=== PATIENT | female | born 1990 | race Hispanic/Latino ===

== ENCOUNTER 2020-09-30 05:43 | Inpatient (IN) | payer BC ==
[~2020-09-30 05:43] MED LIST: Acetaminophen 500 MG TAB PO PRN; Butorphanol Tartrate 1 MG/ML VIAL SLOW IVP PRN; Carboprost 250 MCG/ML AMP IM PRN; Diphenoxylate HCl/Atropine Tablet PO PRN; Docusate 100 MG CAP PO PRN; HYDROcodone/Acetaminophen 5/325 mg Tablet PO PRN; Ibuprofen 800 MG TAB PO PRN; Lactated Ringer's 1,000 ML IV SCH; Lidocaine 1% (PF) 30 ML VIAL SC PRN; Methylergonovine 0.2 MG/ML VIAL IM PRN; Misoprostol 200 MCG TAB PR PRN; NS w/ Oxytocin 30 units 500 ML IV SCH; NS w/ Oxytocin 30 units 500 ML IVPB SCH; Ondansetron PF 4 MG/2 ML Vial IVP PRN; Promethazine HCl 25 MG/ML VIAL IM PRN; hydrALAZINE 20 MG/ML VIAL SLOW IVP PRN
[2020-09-30] MEDS ORDERED: Penicillin G Potassium 5 MILL.UNITS in Sodium Chloride 0.9% 100 ML IVPB SCH (06:00)
[2020-09-30 06:18] VITALS: BMI 43.1
[2020-09-30] MEDS ORDERED: Misoprostol 100 MCG TAB VAG SCH (06:30)
[2020-09-30] MEDS ORDERED: Penicillin G Potassium 5 MILL.UNITS VIAL ONE (10:19)
[2020-09-30 10:20] LABS: Hemoglobin 12.4 g/dL (12.0-15.5); Mean Corpuscular HGB CONC 32.8 g/dL (32.0-36.0); Mean Corpuscular Hemoglobin 28.3 pg (27.0-33.0); Mean Corpuscular Volume 86.3 fl (81.6-98.3); Mean Platelet Volume 9.2 fl (7.4-10.4); Platelet Count 342 10x3/uL (150-450); RBC Distribution Width 14.9 % (11.5-14.5); Red Blood Cell (RBC) Count 4.38 10x6/uL (3.90-5.03); White Blood Cell (WBC) Count 11.7 10x3/uL (3.5-10.5)
[2020-09-30 10:57] LABS: Hep B Surf Ag Non-Reactive S/CO (NonReactive); Syphilis Antibody Nonreactive (Nonreactive); Syphilis Antibody Index 0.02 S/CO (<1.00 Non-Reactive)
[2020-09-30 11:14] LABS: HBSAg Index 0.14 S/CO (0-0.99)
[2020-09-30] MEDS: Penicillin G 2.5 MILL.units 2.5 MILL.UNITS in Premix Bag 1 BAG IVPB SCH ×2 (14:09→18:58)
[2020-09-30] MEDS ORDERED: Ondansetron PF 4 MG/2 ML Vial IVP PRN (23:41)
[2020-09-30] MEDS ORDERED: Benzocaine-Menthol 82.5 ML CAN TOP PRN (23:41)
[2020-09-30] MEDS ORDERED: Promethazine HCl 25 MG/ML VIAL IM PRN (23:41)
[2020-09-30] MEDS ORDERED: hydrALAZINE 20 MG/ML VIAL SLOW IVP PRN (23:41)
[2020-09-30] MEDS ORDERED: Misoprostol 200 MCG TAB VAG PRN (23:41)
[2020-09-30] MEDS ORDERED: Zolpidem Tartrate 5 MG TAB PO PRN (23:41)
[2020-09-30] MEDS ORDERED: Bisacodyl 10 MG SUPP PR PRN (23:41)
[2020-09-30] MEDS ORDERED: Preparation H Ointment 28 GM TUBE PR PRN (23:41)
[2020-09-30] MEDS ORDERED: NS w/ Oxytocin 30 units 500 ML IV SCH (23:41)
[2020-09-30] MEDS ORDERED: HYDROcodone/Acetaminophen 5/325 mg Tablet PO PRN ×2 (23:41)
[2020-09-30] MEDS ORDERED: Boostrix 0.5 ML (Tdap) VIAL IM ONE (23:41)
[2020-09-30] MEDS ORDERED: Measles/Mumps/Rubella 10 MCG/0.5 ML VIAL SC ONE (23:41)
[2020-09-30] MEDS ORDERED: Milk Of Magnesia 30 ML UDCUP PO PRN (23:41)
[2020-09-30] MEDS ORDERED: Varicella virus, LIVE 0.5 ML VIAL SC ONE (23:41)
[2020-09-30] MEDS ORDERED: diphenhydrAMINE 25 MG CAP PO PRN (23:41)
[2020-09-30] MEDS ORDERED: Lanolin Ointment 7 GM TUBE TOP PRN (23:41)
[2020-09-30] MEDS ORDERED: Methylergonovine 0.2 MG TAB PO PRN (23:41)
[2020-10-01] MEDS ORDERED: Docusate Calcium (SURFAK) 240 MG CAP PO SCH (00:15)
[2020-10-01 06:00] LABS: Mean Corpuscular HGB CONC 32.6 g/dL (32.0-36.0); Mean Corpuscular Hemoglobin 28.5 pg (27.0-33.0); Mean Corpuscular Volume 87.3 fl (81.6-98.3); Mean Platelet Volume 9.3 fl (7.4-10.4); Platelet Count 302 10x3/uL (150-450); RBC Distribution Width 15.2 % (11.5-14.5); Red Blood Cell (RBC) Count 3.86 10x6/uL (3.90-5.03); White Blood Cell (WBC) Count 18.9 10x3/uL (3.5-10.5)
[2020-10-01] MEDS: Ibuprofen 800 MG TAB PO SCH ×3 (06:25→20:59)
[2020-10-01] MEDS: Ferrous Sulfate 325 MG TAB PO SCH ×2 (07:14→17:10)
[2020-10-01] MEDS: Prenatal Vitamin 1 TAB PO SCH (08:42)
[2020-10-01] MEDS: Docusate Calcium (SURFAK) 240 MG CAP PO SCH ×2 (08:42→20:59)
[2020-10-02] MEDS ORDERED: Ibuprofen 800 MG TAB PO SCH (06:00)
[2020-10-02] MEDS: Ibuprofen 800 MG TAB PO SCH (06:36)
[2020-10-02] MEDS: Ferrous Sulfate 325 MG TAB PO SCH (07:56)
[2020-10-02] MEDS: Prenatal Vitamin 1 TAB PO SCH (08:36)
[2020-10-02] MEDS: Docusate Calcium (SURFAK) 240 MG CAP PO SCH (08:36)
[2020-10-02 11:46] VITALS: BP 120/68; TEMP 98.5
== END 2020-10-02 13:37 | disposition home or self-care (01) | DRG 807 ==
LOC: CSHLD 05:43 → CSHPP 23:50
PROVIDERS: ADMIT Obstetrics & Gynecology; ATTEND Obstetrics & Gynecology
PROC: 3E033VJ Introduction of Other Hormone into Peripheral Vein, Percutaneous Approach (ICD-10-PCS; principal; 2020-09-30)
PROC: 10E0XZZ Delivery of Products of Conception, External Approach (ICD-10-PCS; 2020-09-30)
DX: O69.81X0 Labor and delivery complicated by cord around neck, without compression, not applicable or unspecified (principal); Z37.0 Single live birth; Z3A.39 39 weeks gestation of pregnancy; K21.9 Gastro-esophageal reflux disease without esophagitis; O99.62 Diseases of the digestive system complicating childbirth
CPT/HCPCS: 85027; 86780; 86850; 86900; 86901; 87340; J2001; J2540; J2590; J3490